=== PATIENT | female | born 1965 | race Two or more races ===

== ENCOUNTER → 2017-09-19 | Day surgery (SDC) | payer MEDICAID ==
[2017-09-15 13:32] LABS: Basophils # (auto) 0 uL; Basophils % (auto) 0.5 % (0.0-2.0); Eosinophils # (auto) 0.2 uL; Eosinophils % (auto) 2.7 % (0.0-7.0); Hematocrit 44.1 % (36.0-46.0); Hemoglobin 14.7 g/dL (12.2-16.2); Lymphocytes # (auto) 3.6 uL; Lymphocytes % (auto) 39.4 % (10.0-50.0); Mean Corpuscular Hemoglobin 28.5 pg (28.0-32.0); Mean Corpuscular Hgb Conc. 33.3 g/dL (32.0-36.0); Mean Corpuscular Volume 85.5 fL (80.0-100.0); Monocytes # (auto) 0.7 uL; Neutrophils # (auto) 4.5 uL; Neutrophils % (auto) 49.4 % (37.0-80.0); Nucleated Red Blood Cells % 0.1 %; Platelet Count (auto) 246 10^3/uL (140-450); Red Cell Distribution Width 15.2 % (11.8-14.3); White Blood Cell 9.1 10^3/uL (4.4-10.8)
[2017-09-15 14:06] LABS: INR 0.95 (0.9-1.15); Partial Thromboplastin Time 24.5 sec (22.64-33.71); Prothrombin Time 10.4 sec (9.37-12.3)
[~2017-09-19] VITALS: Ht 160 cm; Wt 90.7 kg
[~2017-09-19] MED LIST: ENAL5TAB92 PO; HYDR12.56 PO; METF-372 PO; PANT40TA2 PO; SIMV-8 PO; SODIUM CHLORIDE LOCK 10 ML ONE; diphenhdrAMINE HCL 50 MG/1 ML VL ONE
[2017-09-19] MEDS: MIDAZOLAM HCL 5 MG/ML-1ML VIAL ONE ×2 (10:21→10:24)
[2017-09-19] MEDS: fentaNYL CITRATE 100 MCG/2 ML VL ONE ×2 (10:21→10:24)
[2017-09-19 11:18] VITALS: BP 131/72
== END | disposition home or self-care (01) ==
LOC: GI 08:57
PROVIDERS: ATTEND Internal Medicine Gastroenterology
DX: Z12.11 Encounter for screening for malignant neoplasm of colon (principal); K64.8 Other hemorrhoids; E66.9 Obesity, unspecified; E11.9 Type 2 diabetes mellitus without complications; E89.0 Postprocedural hypothyroidism
CPT/HCPCS: 45378; J1200; J3010; 36415; 85025; 85610; 85730; 99152; J2250